=== PATIENT | female | born 1970 | race Caucasian/White ===

== ENCOUNTER 2021-12-01 19:40 | Emergency (ER) | payer BC ==
[2021-12-01 19:49] VITALS: BP 100/58; PULSE 109; TEMP 97.8; BMI 24.5
[2021-12-01] MEDS ORDERED: ONDANSETRON 4 MG TABLET PO ONE (20:21)
[2021-12-01] MEDS ORDERED: ACETAMINOPHEN 1000 MG/100 ML BAG IVPB ONE (20:21)
[2021-12-01] MEDS ORDERED: SODIUM CHLORIDE 0.9% 500 ML INFUS.BAG IV ONE ×2 (20:21→21:41)
[2021-12-01] MEDS ORDERED: ONDANSETRON 4 MG/2 ML VIAL ONE (20:29)
[2021-12-01 21:00] LABS: BASO % 0.3 % (0-2.0); HEMATOCRIT 41.5 % (32.4-45.2); LYMPH % 2.9 % (8-40); MCH 30.1 pg (25.7-33.7); MCHC 33.7 g/dl (32.0-36.0); MEAN CELL VOLUME 89.2 fl (80-96); MEAN PLT VOLUME 8.6 fl (7.5-11.1); MONO % 3.3 % (3.8-10.2); NEUT % 93.5 % (42.8-82.8); PLATELET COUNT 167 10^3/uL (134-434); RBC 4.66 M/mm3 (3.60-5.2); RDW 14.1 % (11.6-15.6); WHITE BLOOD COUNT 9.5 K/mm3 (4.0-10.0)
[2021-12-01 21:23] LABS: ALBUMIN 3.7 g/dl (3.4-5.0); BLOOD UREA NITROGEN 8.7 mg/dL (7-18); MAGNESIUM 1.8 mg/dL (1.8-2.4)
[2021-12-01 21:26] LABS: CREATININE 0.5 mg/dL (0.55-1.3)
[2021-12-01 21:28] LABS: BILIRUBIN,TOTAL 0.7 mg/dL (0.2-1)
[2021-12-01 21:45] LABS: ANISOCYTOSIS 0; MACROCYTOSIS 0
[2021-12-01 22:26] LABS: URINE APPEARANCE CLEAR; URINE BILIRUBIN NEGATIVE (NEGATIVE); URINE COLOR YELLOW; URINE GLUCOSE (UA) NEGATIVE (NEGATIVE); URINE KETONE 3+ (NEGATIVE); URINE LEUK ESTERASE NEGATIVE (NEGATIVE); URINE NITRITE NEGATIVE (NEGATIVE); URINE PROTEIN NEGATIVE (NEGATIVE); URINE UROBILINOGEN 0.2 mg/dL (0.2-1.0)
== END 2021-12-01 23:18 | disposition home or self-care (01) ==
LOC: JER 19:40
PROC: 3E033GC Introduction of Other Therapeutic Substance into Peripheral Vein, Percutaneous Approach (ICD-10-PCS; principal; 2021-12-01)
DX: R11.2 Nausea with vomiting, unspecified (principal)
CPT/HCPCS: 36415; 80053; 81003; 83690; 83735; 84703; 85025; 86850; 86900; 86901; 87086; 93005; 93010; 99284-25

== ENCOUNTER 2024-10-11 04:39 | Day surgery (SDC) | payer BC ==
[2024-10-04 11:53] VITALS: BMI 23.6
[2024-10-11] MEDS ORDERED: ROCURONIUM BROMIDE 50 MG/5 ML SYRINGE ONE (11:54)
[2024-10-11] MEDS ORDERED: MIDAZOLAM HCL 2 MG/2 ML SINGLE DOSE VIAL ONE (11:54)
[2024-10-11] MEDS ORDERED: PROPOFOL 20 ML ONE (11:54)
[2024-10-11] MEDS ORDERED: ceFAZolin SODIUM 1 GM VIAL ONE (12:23)
[2024-10-11] MEDS ORDERED: DEXAMETHASONE SOD PHOSPHATE 4 MG/1 ML VIAL ONE (12:24)
[2024-10-11] MEDS ORDERED: ONDANSETRON 4 MG/2 ML VIAL ONE ×3 (12:24→14:14)
[2024-10-11] MEDS ORDERED: KETOROLAC TROMETHAMINE 30 MG/1 ML VIAL ONE (12:24)
[2024-10-11] MEDS: ceFAZolin 2 GRAM PREMIX BAG IVPB ONE ×2 (12:31)
[2024-10-11] MEDS: BUPIVACAINE HCL/PF 0.5% (5MG/ML) 10 ML VIAL IJ ONE ×3 (12:33→13:38)
[2024-10-11] MEDS ORDERED: ACETAMINOPHEN INJECTION 100 ML ONE (12:46)
[2024-10-11] MEDS ORDERED: NEOSTIGMINE METHYLSULFATE 0.5 MG/1 ML - 10 ML MDV ONE (13:30)
[2024-10-11] MEDS ORDERED: GLYCOPYRROLATE 0.2 MG/1 ML VIAL ONE (13:30)
[2024-10-11] MEDS ORDERED: oxyCODONE HCL 5 MG TABLET PO PRN (13:51)
[2024-10-11] MEDS: LACTATED RINGERS SOLUTION 1,000 ML IV SCH (14:09)
[2024-10-11] MEDS: ONDANSETRON 4 MG/2 ML VIAL IVPUSH PRN (14:15)
[2024-10-11 15:28] VITALS: RESP 16
[2024-10-11 15:36] VITALS: TEMP 97.6
[2024-10-11 16:40] VITALS: BP 115/65; PULSE 66
[2024-10-11] MEDS ORDERED: ONDANSETRON *ODT* 4 MG TABLET ONE (16:57)
[2024-10-11] MEDS: ONDANSETRON *ODT* 4 MG TABLET SL ONE (17:06)
== END 2024-10-11 17:59 | disposition home or self-care (01) ==
LOC: JASU-SURG 04:39
PROVIDERS: ATTEND Obstetrics & Gynecology
PROC: 0UT24ZZ Resection of Bilateral Ovaries, Percutaneous Endoscopic Approach (ICD-10-PCS; 2024-10-11)
PROC: 0UT64ZZ Resection of Left Fallopian Tube, Percutaneous Endoscopic Approach (ICD-10-PCS; principal; 2024-10-11 10:30)
DX: N83.11 Corpus luteum cyst of right ovary (principal); N80.102 Endometriosis of left ovary, unspecified depth
CPT/HCPCS: 81025; 86850; 86900; 86901; 88304-TC; 88305-TC; 94760; J0131; Q0162